=== PATIENT | female | born 1995 | race Caucasian/White ===

== ENCOUNTER 2019-03-26 08:33 | Inpatient (IN) | payer OTHER ==
[~2019-03-26] VITALS: Ht 165.1 cm; Wt 87.2 kg
[2019-03-26] VITALS (28 sets, daily range): BP systolic 97–131; BP diastolic 52–71
[2019-03-26] MEDS ORDERED: PRENTAB9 PO (09:02)
--- NOTE | 2019-03-26 10:53 | HPEPDOC ---
Obstetrical History & Physical General Date of Admission Mar 26, 2019 at 10:15 History of Present Illness 23 yo at 37+6 weeks gestation by 16+2 week US on 26Oct2018 presented to L&D with the complaint of a large gush of clear fluid at 0800 this morning followed by continuous leaking ever since. She denies any vaginal bleeding or contraction pain. She endorses excellent movement. is uncomplicated. Chief Complaint: LOF, term Information Provided By: Patient Age: 23 : 3 Term: 2 Pre-term: 0 Abortions: 0 Livin Care Care: Good Care Dating Final EDC: Apr 10, 2019 Final EDC for Daily Update: Apr 10, 2019 Final EDC by: 2nd trimester (US) (16+2 week US on 26Oct2018 set DALI of (unknown LMP)) Antepartum Course Diagnos(e)s Glucose screening never completed Past Medical History Past Obstetrical History : Past Obstetrical History: Multigravida ( X2 at term, one in 2016 and one February 2018) AUTOCAD History: No pertinent history Past Medical History Medical History Denies Surgical History: [place] teeth Family History Significant Family History: No pertinent family hx Family History Social History Marital Status: Family situation: Spouse/partner home Psychosocial History: No pertinent psych hx * Smoker: non-smoker Alcohol: Denies Drugs: denies Imunizations Tdap status: declined Influenza Status: current Allergies Coded Allergies: No Known Allergies (Unverified , 03/26/19) Medications Scheduled No.137/Iron/Folic Acd ( Vitamin Tablet) 1 Each Tablet, 1 TAB PO DAILY Physical Examination Physical Examination GENERAL: Alert and oriented times three. ABDOMEN: Gravid and non-tender to touch. FETUS: Is vertex (VTX) by sterile vaginal examination (SVE) EXTREMITIES: No edema. Speculum exam - Normal external female genitalia. Speculum placed into the vagina. Gross pooling of clear fluid in the vaginal vault. Nitrazine positive, ferning slide positive. Speculum removed. Digital cervical exam: 1-/-2. Vital Signs/I&O Vital Signs Date Time Temp Pulse Resp B/P (MAP) Pulse Ox O2 Delivery O2 Flow Rate FiO2 03/26/19 09:44 95 18 106/57 (73) 03/26/19 09:08 98.7 Laboratory Data 24H [facility] Laboratory Tests 2 03/26/19 10:14: Serology Scanned Report Hepatitis B Testing Urine Culture: No Growth Pertinent Laboratoy Data Blood Type: O+ RBC Antibody Screen: Negative HIV: Negative Hepatitis B: Negative Hepatitis C: Unknown Rapid Plasma Reagin: Nonreactive Rubella: Immune Varicella: Immune Chlamydia/Gonorrhea: Negative Group B Streptococcus: Negative Quad Screen Test: Negative Cystic Fibrosis: Unknown Anatomy Ultrasound Placenta Location: Posterior Normal Anatomy: Yes Placenta Previa: No Vaginal Examination Dilation: 1cm Effacement: 60% Station: -2 Cervical Consistency: Soft Cervical Position: Middle Presentation: Cephalic presentation Position: Vertex (occiput) Assessment Heart Rate (FHR): 140 Variability: Moderate Accelerations: Positive Decelerations: None Tocometer Contractions: No Assessment/Plan Assessment 23 yo at 37+6 weeks presented with PROM. Uncomplicated . Plan Admit to L&D for PROM. If labor does not start within the next few hours will start pitocin. Apply IV fluids. GBS negative. Regular diet. Patient candidate for epidural when in active labor. Anticipate . DO BRENDAN Joya CHRISTOPHER J. DO Mar 26, 2019 10:53
[2019-03-26 11:43] LABS: HEMATOCRIT 39.6 % (36.0-47.0); HEMOGLOBIN 13.1 g/dl (12.0-15.5); MEAN CORPUSCULAR HEMOGLOBIN 31.9 pg (27.0-33.0); MEAN CORPUSCULAR HGB CONC 33.1 g/dl (32.0-36.5); MEAN CORPUSCULAR VOLUME 96.4 fl (80.0-96.0); PLATELET COUNT, AUTOMATED 271 10^3/uL (150-450); RED BLOOD COUNT 4.11 10^6/uL (4.00-5.40); WHITE BLOOD COUNT 11.1 10^3/uL (4.0-10.0)
[2019-03-26] MEDS ORDERED: SLF 3 ML SYR IV PRN (11:45)
[2019-03-26] MEDS ORDERED: SLF 3 ML SYR IV SCH (14:00)
[2019-03-26] MEDS ORDERED: LR 1,000 ML IV SCH (14:02)
--- NOTE | 2019-03-26 14:04 | IPNPDOC ---
Text Note Date of Service The patient was seen on 03/26/19. NOTE Presented to room for assessment of progress. Cervix: /-3. Minimal change from last exam. Sporadic contractions on toco. Recommended starting pitocin and Fanny is amenable. FHR tracing remains Cat I. DO Toan VS,Jamal, I+O VS, Jamal, I+O Laboratory Tests 03/26/19 11:25 Red Blood Count 4.11, Mean Corpuscular Volume 96.4 H, Mean Corpuscular Hemoglobin 31.9, Mean Corpuscular Hemoglobin Concent 33.1, Red Cell Distribution Width 12.8 Vital Signs Date Time Temp Pulse Resp B/P (MAP) Pulse Ox O2 Delivery O2 Flow Rate FiO2 03/26/19 12:46 80 18 98/56 (70) 03/26/19 09:08 98.7 BRETT CARDONA DO Mar 26, 2019 14:04
[2019-03-26] MEDS ORDERED: OXYTOCIN DRIP 30 UNITS in APPROPRIATE DILUENT 1 EA IV SCH ×2 (14:15→19:47)
[2019-03-26] MEDS ORDERED: FENTANYL 2MCG/ML ROPIVACAINE 0.2% IN 0.9% NACL 100ML IVBAG As Ordered ONE (16:21)
[2019-03-26] MEDS ORDERED: NALOXONE INJ 0.4 MG/1 ML VIAL (J2310) IV PRN (17:45)
[2019-03-26] MEDS ORDERED: EPIDURAL COMMENT XX SCH (17:45)
[2019-03-26] MEDS ORDERED: FENTANYL/ROPIVACAINE/NACL BAG 100 ML EPIDURAL SCH (17:45)
[2019-03-26] MEDS ORDERED: LACTATED RINGER'S 1000 ML IV PRN (17:45)
[2019-03-26] MEDS ORDERED: EPIDURAL/PCA KEYS XX PRN (17:45)
[2019-03-26] MEDS ORDERED: ePHEDrine SULFATE 25 MG/5 ML(5MG/ML) SYRINGE IV PRN (17:45)
[2019-03-26] MEDS ORDERED: diphenhydrAMINE INJ 50MG/ML VIAL (J1200) IV PRN (17:45)
[2019-03-26] MEDS ORDERED: REFRIGERATOR IV KEYS XX PRN (17:45)
[2019-03-26] MEDS ORDERED: ONDANSETRON 4MG/2ML VIAL (J2405) IV PRN (17:45)
--- NOTE | 2019-03-26 19:54 | DNPDOC ---
[facility] Delivery Note Delivery Note DATE OF DELIVERY: [id number] PREDELIVERY DIAGNOSIS: 37 6/7 weeks' gestation and labor. POST DELIVERY DIAGNOSIS: Delivered. PROCEDURE: Spontaneous vaginal delivery SENIOR MATERIALS SCIENTIST: Dr. Bragg ANESTHESIA: epidural ESTIMATED BLOOD LOSS: 200 mL. FINDINGS: female infant, weight pending, Score 9/10. DELIVERY SUMMARY: Assumed care at 1900. Great effort, with only a few pushes del'd the vtx LOP then to LOT with no delay of the vtx or ant/post shoulders. Vigorous to abd. Cord C/C by FOB. Cord blood. Placenta intact, pit going wide open, fundus firm. No lacs to vag/per/cx. Uncomplicated. Clari BRAGG,TED Del Toro MD Mar 26, 2019 19:54
[2019-03-26] MEDS ORDERED: DOCUSATE SODIUM 100 MG CAP PO PRN (20:00)
[2019-03-26] MEDS ORDERED: IBUPROFEN 800 MG TAB PO PRN (20:00)
[2019-03-26] MEDS ORDERED: MEASLES,MUMPS,RUBELLA VACCINE INJ (MMR-II) (90707) SC SCH (20:00)
[2019-03-26] MEDS ORDERED: DIBUCAINE 1% OINTMENT 30GM TOP PRN (20:00)
[2019-03-26] MEDS ORDERED: RHOGAM 300 MCG (1500 IU) INJ (J2790) IM SCH (20:00)
[2019-03-26] MEDS ORDERED: ACETAMINOPHEN TAB 650MG DOSE (2X325MG) PO PRN (20:00)
--- NOTE | 2019-03-27 05:56 | IPNPDOC ---
Text Note Date of Service The patient was seen on 03/27/19. NOTE PPD1 status post uncomplicated spontaneous vaginal delivery, no delivery compl ications or lacerations. She has been ambulating, voiding spontaneously without issue and tolerating regular diet. Breast feeding well and bonding appropriately. Reports lochia is light. Denies any pain or concerns. VITAL SIGNS: Within normal limits, afebrile. Alert and oriented times three. Abdomen: Fundus firm at U-2. Soft, NTTP. A/P: PPD 1, stable and doing well. PLAN: 1. Likely d/c tomorrow AM. 2. Tylenol and Motrin for pain. 3. Encourage breast feeding on demand and ambulation. 4. Routine PP Care VS,Fishbone, I+O VS, Fishbone, I+O Laboratory Tests 03/26/19 11:25 Red Blood Count 4.11, Mean Corpuscular Volume 96.4 H, Mean Corpuscular Hemoglobin 31.9, Mean Corpuscular Hemoglobin Concent 33.1, Red Cell Distribution Width 12.8 Vital Signs Date Time Temp Pulse Resp B/P (MAP) Pulse Ox O2 Delivery O2 Flow Rate FiO2 03/26/19 21:59 98.0 85 18 126/57 (80) I&O- Last 24 Hours up to 6 AM 03/27/19 06:00 Intake Total 2450 ml Output Total 550 ml Balance 1900 ml SESSIONS,TED Del Toro MD Mar 27, 2019 05:56
[2019-03-27] MEDS ORDERED: LEVO200T4 PO (06:27)
[2019-03-27 06:30] VITALS: BP 114/70
[2019-03-27] MEDS: PRENATAL VITAMINS CHEWABLE TABLET PO SCH (08:10)
[2019-03-27 18:00] VITALS: BP 121/68
[2019-03-28 06:23] VITALS: BP 117/77
[2019-03-28] MEDS ORDERED: IBUP80TA PO (07:37)
[2019-03-28] MEDS ORDERED: ACET1TAB55 PO (07:37)
[2019-03-28] MEDS: PRENATAL VITAMINS CHEWABLE TABLET PO SCH (09:08)
== END 2019-03-28 11:40 | disposition home or self-care (01) | DRG 807 ==
LOC: EDBD 08:33 → M LDO 08:33 → M LDI 10:15 → M OBS 21:43
PROVIDERS: ADMIT Obstetrics & Gynecology; ATTEND Obstetrics & Gynecology
PROC: 10E0XZZ Delivery of Products of Conception, External Approach (ICD-10-PCS; principal; 2019-03-26)
PROC: 3E033VJ Introduction of Other Hormone into Peripheral Vein, Percutaneous Approach (ICD-10-PCS; 2019-03-26)
DX: O42.02 Full-term premature rupture of membranes, onset of labor within 24 hours of rupture (principal); Z37.0 Single live birth; Z3A.37 37 weeks gestation of pregnancy